=== PATIENT | female | born 1960 | race Caucasian/White ===

== ENCOUNTER 2016-03-15 17:28 | Emergency (ER) | payer MEDICAID ==
[~2016-03-15] VITALS: Ht 167.6 cm; Wt 108.9 kg
[~2016-03-15 17:28] MED LIST: ASPI81CH43 PO; ATOR10TA52 PO; CITA20TA3 PO; GLIP-116 PO; LIS5T PO; METF-312 PO; NIC21P TD
[2016-03-15] MEDS ORDERED: SODIUM BICARBONATE 8.4% INJ 50ML SYRINGE IV ONE (22:00)
[2016-03-15] MEDS ORDERED: CALCIUM CHLOR(10%) 100MG/ML 10ML SYRINGE IV ONE (22:00)
[2016-03-15] MEDS ORDERED: EPINEPHrine HCL 1 MG/10 ML SYRG IV ONE (22:00)
== END 2016-03-15 21:30 | disposition expired ==
LOC: EDUNIT# 17:28 → EDBD 17:37 → ER 17:37
DX: I46.9 Cardiac arrest, cause unspecified (principal); Z79.899 Other long term (current) drug therapy; J45.909 Unspecified asthma, uncomplicated; E11.9 Type 2 diabetes mellitus without complications; I10 Essential (primary) hypertension; F17.210 Nicotine dependence, cigarettes, uncomplicated; Z98.890 Other specified postprocedural states
CPT/HCPCS: 99285; J0171